=== PATIENT | male | born 1955 | race Caucasian/White ===

== ENCOUNTER → 2016-09-30 | Outpatient (CLI) | payer BC, OTHER | LOC: FIMAGING 13:01 | PROVIDERS: ATTEND Orthopaedic Surgery | DX: M17.12 Unilateral primary osteoarthritis, left knee (principal); M25.462 Effusion, left knee ==

== ENCOUNTER → 2016-10-15 | Outpatient (CLI) | payer BC, OTHER | LOC: FIMAGING 08:39 | PROVIDERS: ATTEND Orthopaedic Surgery | DX: Z01.818 Encounter for other preprocedural examination (principal); M17.12 Unilateral primary osteoarthritis, left knee ==

== ENCOUNTER 2016-10-16 06:46 | Inpatient (IN) | payer BC ==
[2016-10-16] MEDS ORDERED: TRANEXAMIC ACID 3,000 MG in NS 50 ML IRR ONE (07:01)
[2016-10-16] MEDS ORDERED: ACETAMINOPHEN 325 MG TAB PO ONE (07:01)
[2016-10-16] MEDS ORDERED: ROPIVACAINE 0.2% 80 MG, EPINEPHrine 0.2 MG, KETOROLAC TROMETHAMINE 30 MG in BAG 0 ML IU ONE (07:01)
[2016-10-16] MEDS ORDERED: ceFAZolin 2 GM/DEXTROSE 100 ML IV ONE (07:01)
[2016-10-16] MEDS ORDERED: DEXAMETHASONE 4 MG/ML VIAL IVP ONE (07:01)
[2016-10-16] MEDS ORDERED: FAMOTIDINE 20 MG TAB PO ONE (07:01)
--- NOTE | 2016-10-16 07:08 | PDHPUP ---
History & Physical Update H&P update statement: This history and physical update is based on an assessment of the patient which was completed after admission or registration (within 24 hours), but prior to the surgery/procedure. H&P update: H&P reviewed & patient examined, no change in patient's condition since H&P completed
[2016-10-16] MEDS ORDERED: LR 1,000 ML IV ONE (07:10)
[2016-10-16] MEDS ORDERED: TRANEXAMIC ACID 3,000 MG/50 ML BAG IRR ONE (07:33)
[2016-10-16] MEDS ORDERED: VANCOMYCIN 1 GM VIAL ONE (07:33)
[2016-10-16] MEDS ORDERED: MIDAZOLAM 2 MG/2 ML VIAL IVP ONE (09:12)
--- NOTE | 2016-10-16 09:14 | PDANEPAE ---
ANE History of Present Illness tka ANE Past Medical History - Cardiovascular History Hx Hypertension: Yes Hx Arrhythmias: No Hx Chest Pain: No Hx Coronary Artery / Peripheral Vascular Disease: No Hx CHF / Valvular Disease: No Hx Palpitations: No - Pulmonary History Hx COPD: No Hx Asthma/Reactive Airway Disease: No Hx Recent Upper Respiratory Infection: No Hx Oxygen in Use at Home: No Hx Sleep Apnea: No Sleep Apnea Screening Result - Last Documented: Positive - Neurologic History Hx Cerebrovascular Accident: No Hx Seizures: No Hx Dementia: No - Endocrine History Hx Diabetes: No - Renal History Hx Renal Disorders: No - Liver History Hx Hepatic Disorders: No - Neurological & Psychiatric Hx Hx Neurological and Psychiatric Disorders: No - Cancer History Hx Cancer: Yes Cancer History Comment: skin ca on nose, face, arm. -melanoma and basil/ squamous cell - Congenital Disorder History Hx Congenital Disorders: No - GI History Hx Gastrointestinal Disorders: No - Chronic Pain History Chronic Pain: No - Surgical History Prior Surgeries: C5-6 fusion 2009. left knee scope 2003. left knee 1983 ANE Review of Systems - Exercise capacity METS (RN): 3 METS ANE Patient History - Allergies Allergies/Adverse Reactions: No Known Allergies Allergy (Unverified 09/13/16 14:15) - Home Medications Home Medications: Doxazosin Mesylate [Cardura 4 MG (*)] 4 mg PO HS 09/13/16 [Last Taken 10/15/16 20:00] Hydrochlorothiazide [HCTZ (*)] 25 mg PO DAILY 09/13/16 [Last Taken 10/15/16 09: 00] Ketoconazole 2% [Nizoral 2% Cream (*)] 1 radha TP DAILY 09/13/16 [Last Taken 2 Weeks Ago] Losartan Potassium 100 mg PO DAILY 09/13/16 [Last Taken 10/15/16 09:00] Omeprazole [Prilosec 20 mg] 40 mg PO DAILY 09/13/16 [Last Taken 3 Weeks Ago] guaiFENesin [Mucinex 600 MG (*)] 1,200 mg PO DAILY PRN 09/13/16 [Last Taken 2 Weeks Ago] - NPO status NPO Status: no food or drink >8 hours NPO Since - Liquids (Date): 10/15/16 NPO Since - Liquids (Time): 20:00 NPO Since - Solids (Date): 10/15/16 NPO Since - Solids (Time): 20:00 - Anes Hx Anes Hx: no prior problems - Smoking Hx Smoking Status: Never smoked - Family Anes Hx Family Hx Anesthesia Complications: no ANE Labs/Vital Signs - Vital Signs Blood Pressure: 134/88 Heart Rate: 80 Respiratory Rate: 16 O2 Sat (%): 95 Height: 175.26 cm Weight: 113.398 kg ANE Physical Exam - Airway Mallampati Score: Class 2 Mouth exam: normal dental/mouth exam - Pulmonary Pulmonary: no respiratory distress - Cardiovascular Cardiovascular: regular rate and rhythym - ASA Status ASA Status: II ANE Anesthesia Plan Anesthesia Plan: spinal Regional Anesthesia: adductor canal FNB
[2016-10-16] MEDS ORDERED: MIDAZOLAM 2 MG/2 ML VIAL ONE (09:16)
[2016-10-16] MEDS ORDERED: LIDOCAINE 2% 5 ML SDV ONE (09:21)
[2016-10-16] MEDS ORDERED: PROPOFOL/EMULSION 500 MG/50 ML BOTTLE IV ONE ×2 (09:22→10:16)
[2016-10-16] MEDS ORDERED: HYDROmorphONE/DILAUDID 1 MG/ML SYR IVP PRN (09:42)
[2016-10-16] MEDS ORDERED: ONDANSETRON 4 MG/2 ML VIAL IVP PRN ×2 (09:42→11:02)
[2016-10-16] MEDS ORDERED: D5W LR 500 ML IV PRN (09:42)
[2016-10-16] MEDS ORDERED: fentaNYL 100 MCG/2 ML INJ IVP PRN (09:42)
[2016-10-16] MEDS ORDERED: MEPERIDINE 25 MG/ML SYR IVP PRN (09:42)
[2016-10-16] MEDS ORDERED: NALOXONE HCL 0.4 MG/ML INJ IVP PRN (09:42)
[2016-10-16] MEDS ORDERED: ROPIVACAINE HCL 150 MG/30 ML INJ ONE (10:17)
[2016-10-16] MEDS ORDERED: guaiFENesin 600 MG TAB.ER PO PRN (11:01)
--- NOTE | 2016-10-16 11:01 | POSTOPPROG ---
Post Op Note Date of Operation: 10/16/16 Surgeon: Mercy Reid Automotive Porter: helga luna Anesthesiologist: alf Anesthesia: IV Sedation, Local (Specify) (adductor canal block), Spinal Pre-op Diagnosis: L knee OA Post-op Diagnosis: L knee OA Indication: failed conservative therapies Procedure: L TKA, robot assisted Inf/Abcess present in the surg proc area at time of surgery?: No EBL: 50-100
[2016-10-16] MEDS ORDERED: diphenhydrAMINE 25 MG CAP PO PRN (11:02)
[2016-10-16] MEDS ORDERED: METOCLOPRAMIDE 10 MG/2 ML VIAL IVP PRN (11:02)
[2016-10-16] MEDS ORDERED: CYCLOBENZAPRINE 10 MG TAB PO PRN (11:02)
[2016-10-16] MEDS ORDERED: PROMETHAZINE HCL 25 MG SUPPR PR PRN (11:02)
[2016-10-16] MEDS ORDERED: POLYETHYLENE GLYCOL 3350 17 GM PKT PO PRN (11:02)
[2016-10-16] MEDS ORDERED: DIPHENOXYLATE/ATROPINE LOMOTIL 1 TAB PO PRN (11:02)
[2016-10-16] MEDS ORDERED: BISACODYL 10 MG SUPP PR PRN (11:02)
[2016-10-16] MEDS ORDERED: TEMAZEPAM 15 MG CAP PO PRN (11:02)
[2016-10-16] MEDS ORDERED: MAGNESIUM HYDROXIDE 30 ML UDCUP PO PRN (11:02)
[2016-10-16] MEDS ORDERED: LACTULOSE 20 GM/30 ML UDCUP PO PRN (11:02)
[2016-10-16] MEDS ORDERED: ONDANSETRON DISINTEGRATING 4 MG TAB PO PRN (11:02)
[2016-10-16] MEDS ORDERED: PROMETHAZINE HCL 25 MG/ML INJ IVP PRN (11:02)
--- NOTE | 2016-10-16 11:19 | POSTANESTH ---
Post Anesthetic Evaluation Cardiovascular Status: Normal, Stable Respiratory Status: Normal, Stable Level of Consciousness/Mental Status: Can Participate in Eval, Moderately Sleepy Pain Control: Adequate, Prn Tx Ordered Nausea/Vomiting Control: Adequate, Prn Tx Ordered Complications Possibly Related to Anesthesia: None Noted
[2016-10-16] MEDS ORDERED: LR 1,000 ML IV SCH (11:30)
[2016-10-16] MEDS: ACETAMINOPHEN 325 MG TAB PO SCH ×2 (12:52→17:58)
[2016-10-16] MEDS: ceFAZolin 2 GM/DEXTROSE 100 ML IV SCH (17:00)
[2016-10-16] MEDS: oxyCODONE IR 5 MG TAB PO PRN (17:11)
[2016-10-16] MEDS: FAMOTIDINE 20 MG TAB PO SCH (20:34)
[2016-10-16] MEDS: ASPIRIN 325 MG TAB PO SCH (20:35)
[2016-10-16] MEDS: SENNOSIDES/DOCUSATE SODIUM TAB PO SCH (20:35)
[2016-10-16] MEDS ORDERED: DOXAZOSIN MESYLATE 4 MG TAB PO SCH (21:00)
[2016-10-17] MEDS: ACETAMINOPHEN 325 MG TAB PO SCH ×3 (00:07→12:02)
[2016-10-17] MEDS: ceFAZolin 2 GM/DEXTROSE 100 ML IV SCH (00:07)
[2016-10-17 05:18] LABS: HEMATOCRIT 39.1 % (40.0-51.0); HEMOGLOBIN 13.7 g/dL (13.7-17.5)
[2016-10-17 07:56] VITALS: BP 145/88; PULSE 80; RESP 14; TEMP 97.8; O2SAT 97
--- NOTE | 2016-10-17 08:08 | SOAPPROG ---
SOAP Progress Note Assessment/Plan: Assessment: Patient is doing well POD 1 s/p L TKA, leena Pain management: pain is well controlled on oral pain meds. VTE ppx: recommend aspirin daily for 3 weeks, cont KESHAV and SCDs Anemia: level is expected initially postop. Asymptomatic. Continue to monitor D/c planning: d/c to home today pending release from PT Plan: 10/17/16 08:08 Objective: Vital Signs Temp Pulse Resp BP Pulse Ox 36.6 C 80 14 145/88 H 97 10/17/16 07:53 10/17/16 07:53 10/17/16 07:53 10/17/16 07:53 10/17/16 07:53 Laboratory Results 10/17/16 04:25 10/16/16 10/17/16 10/18/16 05:59 05:59 05:59 Intake Total 5740 Output Total 2895 Balance 2845 ICD10 Worksheet Patient Problems: Problems Problem Status Onset Osteoarthritis of knee, unilateral Acute - ICD10 Problem Qualifiers (1) Osteoarthritis of knee, unilateral
[2016-10-17] MEDS: ASPIRIN 325 MG TAB PO SCH (08:25)
[2016-10-17] MEDS: SENNOSIDES/DOCUSATE SODIUM TAB PO SCH (08:26)
[2016-10-17] MEDS: oxyCODONE IR 5 MG TAB PO PRN (08:26)
[2016-10-17] MEDS: FAMOTIDINE 20 MG TAB PO SCH (08:28)
[2016-10-17] MEDS ORDERED: LOSARTAN POTASSIUM 50 MG TAB PO SCH (09:00)
[2016-10-17] MEDS ORDERED: KETOCONAZOLE 2% 15 GM CREAM TP SCH (09:00)
[2016-10-17] MEDS ORDERED: HYDROCHLOROTHIAZIDE 25 MG TAB PO SCH (09:00)
[2016-10-17] MEDS ORDERED: NON-FORMULARY NEW DRUG (Omeprazole [Prilosec 20 Mg] 40 MG) PO SCH (09:00)
[2016-10-17] MEDS ORDERED: NON-FORMULARY NEW DRUG (Losartan Potassium [Losartan Potassium] 100 MG) PO SCH (09:00)
[2016-10-17] MEDS ORDERED: PANTOPRAZOLE SODIUM 40 MG TAB PO SCH (09:00)
--- NOTE | 2016-10-17 14:01 | GOP ---
[f rep st] OPERATIVE REPORT DATE OF OPERATION: 10/16/2016 SURGEON: Erica Reid MD BUSINESS TECHNOLOGY ANALYST: FREDI Luther. ANESTHESIA: Spinal. PREOPERATIVE DIAGNOSIS: Left knee osteoarthritis. POSTOPERATIVE DIAGNOSIS: Left knee osteoarthritis. PROCEDURE PERFORMED: Left total knee arthroplasty with computer navigation and robotic assist. FINDINGS: ESTIMATED BLOOD LOSS: 30 cc. DESCRIPTION OF PROCEDURE: PATHOLOGY: Severe tricompartmental osteoarthritis. INDICATIONS: This is a 61-year-old male with severe and progressive pain and deformity of the left knee unresponsive to conservative care. Risks and benefits of the surgical intervention were explained in detail. DESCRIPTION OF PROCEDURE: The patient was brought to the operative room and placed on the table in the supine position. Spinal anesthesia was induced without difficulty. A pneumatic tourniquet was applied about the left proximal thigh, and the leg was prepped and draped in a sterile fashion. The leg wooten was applied. After exsanguination by elevation the tourniquet was inflated to 275 mm of mercury. Incision was made anterior medial from the tibial tuberosity to a point 2 cm proximal to the superior pole of the patella. Medial parapatellar arthrotomy was carried out from the superior pole of the patella and posteriorly in line with the fibers of the Type II VMO. The medial collateral ligament was elevated and the infrapatellar fat pad was resected. The patella was everted and the articular surface was excised. A 38 mm patellar button was placed. Attention was turned first to the distal aspect of the left femur. At 3 cm proximal to the medial rise of the femur, 2 percutaneous half pins were placed for fixation of the femoral array. In a similar fashion, 2 pins were placed anteromedial on the tibia for fixation of the tibial array. External land marking and registration of the hip center was performed without difficulty. Internal femoral and tibial registration was carried out without difficulty and the femoral and tibial checkpoints were placed and verified for accuracy. Attention was turned to the femur. The foot print for the size 6 femoral component was cut with the saw using the [employer] robotic system and verified for accuracy against the CT based plan. In a similar fashion, saw was used to cut the footprint for the size 7 tibial component using the [employer] system and verified for accuracy against the CT based plan. The tibial articular surface was excised without difficulty, followed by the intercondylar box cut. The knee was extended and the remnants of the medial and lateral meniscus were excised. The posterior capsule was injected with ropivacaine, epinephrine and Toradol. A size 7 MIS mini-keel tibial tray was positioned. Trial reduction was then carried out. There was excellent range of motion, alignment, and stability using the 9 mm polyethylene. All trials were then removed. The joint was thoroughly irrigated and carefully dried. Two packages of cement and 2 grams of vancomycin were mixed in the vacuum mixer and placed on the fixation surfaces of all surfaces of the components. The components were implanted and all excess cement was thoroughly removed. The permanent 9 mm polyethylene was placed without difficulty. The tourniquet was deflated and all bleeders were coagulated. The wound was thoroughly irrigated and closed using interrupted sutures of 2-0 Vicryl for the joint capsule. The subcu was closed with 3-0 Vicryl and the skin with 4-0 Monocryl. Dermabond and Steri-Strips were applied followed by a compressive dressing. The patient was then moved from the operating room to the recovery room in good condition, having tolerated the procedure well. /[id number]/MODL MTDD
--- NOTE | 2016-10-20 22:02 | GDS ---
[f rep st] DISCHARGE SUMMARY ADMIT DIAGNOSIS: Left knee osteoarthritis. DISCHARGE DIAGNOSIS: Left knee osteoarthritis. PROCEDURE: Left total knee arthroplasty, robotic assisted. VTE prophylaxis. Full-strength aspirin x21 days. BRIEF DESCRIPTION OF HOSPITAL STAY: Patient was admitted for an elective joint arthroplasty. The patient tolerated the procedure well and has passed physical therapy. The patient was given appropriate antibiotic prophylaxis and venous thromboembolism prophylaxis. The patient's pain was well controlled on oral pain medication. The patient was holding down food and had urinated. Decision was made to discharge the patient. The patient was given post-operative prescriptions pre-operatively. PLAN: To follow up with Dr. Reid at [facility] as scheduled , on November 07. /[id number]/MODL MTDD
== END 2016-10-17 12:45 | disposition home or self-care (01) | DRG 470 ==
LOC: F3N 06:46
PROVIDERS: ADMIT Orthopaedic Surgery; ATTEND Orthopaedic Surgery
DX: M17.12 Unilateral primary osteoarthritis, left knee (principal); I10 Essential (primary) hypertension; Z85.820 Personal history of malignant melanoma of skin; Z98.1 Arthrodesis status
CPT/HCPCS: 97116-GP; 97161-GP; 97165-GO; C1713; J0171; J0690; J1100; J1885; J2250; J2704; J2795; J3370

== ENCOUNTER → 2016-11-19 | Outpatient (CLI) | payer BC | LOC: FIMAGING 13:51 | PROVIDERS: ATTEND Orthopaedic Surgery | DX: Z01.818 Encounter for other preprocedural examination (principal); M17.11 Unilateral primary osteoarthritis, right knee ==

== ENCOUNTER 2016-12-04 05:38 | Inpatient (IN) | payer BC ==
[2016-11-19 14:51] LABS: % IMMATURE GRANULYOCYTES 0.4 % (0.0-1.1); ABSOLUTE IMMATURE GRANULOCYTES 0.03 10^3/uL (0.00-0.10); ADD DIFF? NO; ADD MORPH? NO; ADD SCAN? NO; ATYPICAL LYMPHOCYTE FLAG 10 (0-99); FRAGMENT RBC FLAG 0 (0-99); HEMATOCRIT 43.9 % (40.0-51.0); HEMOGLOBIN 15.2 g/dL (13.7-17.5); LEFT SHIFT FLG 0 (0-99); LIPEMIA HEMOLYSIS FLAG 90 (0-99); MEAN CELL HEMOGLOBIN 32.9 pg (27.9-34.1); MEAN CELL HEMOGLOBIN CONCENTR. 34.6 g/dL (32.4-36.7); MEAN PLATELET VOLUME 10.3 fL (8.7-11.7); PLATELET CLUMPS FLAG 0 (0-99); PLATELET COUNT 211 10^3/uL (150-400); RED BLOOD CELL COUNT 4.62 10^6/uL (4.40-6.38); RED CELL DISTRIBUTION WIDTH 12.8 % (11.5-15.2)
[2016-11-19 15:26] LABS: ALANINE AMINOTRANSFERASE 47 IU/L (21-72); ALBUMIN 3.9 g/dL (3.5-5.0); ALKALINE PHOSPHATASE 83 IU/L (38-126); ANION GAP 9 mEq/L (8-16); ASPARTATE AMINOTRANSFERASE 31 IU/L (17-59); BILIRUBIN,TOTAL 0.7 mg/dL (0.1-1.4); CALCIUM 9.7 mg/dL (8.5-10.4); CARBON DIOXIDE 25 mEq/l (22-31); CHLORIDE 102 mEq/L (97-110); CREATININE 1.1 mg/dL (0.7-1.3); GLOMERULAR FILTRATION RATE > 60; GLUCOSE 97 mg/dL (70-100); POTASSIUM 3.8 mEq/L (3.5-5.2); SODIUM 136 mEq/L (134-144); TOTAL PROTEIN 7.2 g/dL (6.3-8.2)
[2016-12-04] MEDS ORDERED: TRANEXAMIC ACID 3,000 MG in NS 50 ML IRR ONE ×2 (06:00→06:02)
[2016-12-04] MEDS ORDERED: ROPIVACAINE 0.2% 80 MG, EPINEPHrine 0.2 MG, KETOROLAC TROMETHAMINE 30 MG in BAG 0 ML IU ONE ×2 (06:00→06:02)
[2016-12-04] MEDS ORDERED: FAMOTIDINE 20 MG TAB PO ONE ×2 (06:02)
[2016-12-04] MEDS ORDERED: ceFAZolin 2 GM/DEXTROSE 100 ML IV ONE ×2 (06:02)
[2016-12-04] MEDS ORDERED: ACETAMINOPHEN 325 MG TAB PO ONE ×2 (06:02)
[2016-12-04] MEDS ORDERED: DEXAMETHASONE 4 MG/ML VIAL IVP ONE ×2 (06:02)
[2016-12-04] MEDS ORDERED: LIDOCAINE 1% 2 ML INJ ID PRN (06:04)
[2016-12-04] MEDS ORDERED: LR 1,000 ML IV ONE (06:04)
[2016-12-04] MEDS ORDERED: VANCOMYCIN 1 GM VIAL ONE (06:45)
[2016-12-04] MEDS ORDERED: TRANEXAMIC ACID 3,000 MG/50 ML BAG IRR ONE (06:45)
[2016-12-04] MEDS ORDERED: PROPOFOL/EMULSION 500 MG/50 ML BOTTLE IV ONE ×2 (07:00)
[2016-12-04] MEDS ORDERED: fentaNYL 100 MCG/2 ML INJ ONE (07:00)
--- NOTE | 2016-12-04 07:05 | PDANEPAE ---
ANE History of Present Illness 61 yo male with OA s/p L TKA in August now for R TKA ANE Past Medical History - Cardiovascular History Hx Hypertension: Yes Hx Arrhythmias: No Hx Chest Pain: No Hx Coronary Artery / Peripheral Vascular Disease: No Hx CHF / Valvular Disease: No Hx Palpitations: No - Pulmonary History Hx COPD: No Hx Asthma/Reactive Airway Disease: No Hx Recent Upper Respiratory Infection: No Hx Oxygen in Use at Home: No Hx Sleep Apnea: No Sleep Apnea Screening Result - Last Documented: Positive - Neurologic History Hx Cerebrovascular Accident: No Hx Seizures: No Hx Dementia: No - Endocrine History Hx Diabetes: No - Renal History Hx Renal Disorders: No Renal History Comment: BPH - Liver History Hx Hepatic Disorders: No - Neurological & Psychiatric Hx Hx Neurological and Psychiatric Disorders: No - Cancer History Hx Cancer: Yes Cancer History Comment: skin ca on nose, face, arm. -melanoma and basil/ squamous cell - Congenital Disorder History Hx Congenital Disorders: No - GI History GERD: moderate Hx Gastrointestinal Disorders: Yes Gastrointestinal History Comment: ACID REFLUX - Other Health History Other Health History: " I'm allergic to [place]-trees,mold, grass,cats" - Chronic Pain History Chronic Pain: No - Surgical History Prior Surgeries: L total knee Sep 2016. C5-6 fusion 2009. left knee scope 2003. left knee 1983 ANE Review of Systems Review of Systems: No URI/fever x2 weeks. - Exercise capacity METS (RN): 3 METS - Systems Cardiac: Reports: no symptoms Respiratory: Reports: no symptoms ANE Patient History - Allergies Allergies/Adverse Reactions: cat dander Allergy (Verified 11/05/16 13:39) mold Allergy (Verified 11/05/16 13:39) tree and shrub pollen Allergy (Verified 11/05/16 13:39) - Home Medications Home medications: home medication list seen and reviewed Home Medications: Doxazosin Mesylate [Cardura 4 MG (*)] 4 mg PO HS 09/13/16 [Last Taken 12/03/16 19:00] Hydrochlorothiazide [HCTZ (*)] 25 mg PO DAILY 09/13/16 [Last Taken 12/03/16 10: 00] Losartan Potassium 100 mg PO DAILY 09/13/16 [Last Taken 12/03/16 10:00] Sennosides/Docusate Sodium [Senokot-S] 1 - 2 tab PO BID 11/04/16 [Last Taken 3 Weeks Ago ~11/13/16] - NPO status NPO Status: no food or drink >8 hours NPO Since - Liquids (Date): 12/03/16 NPO Since - Liquids (Time): 18:00 NPO Since - Solids (Date): 12/03/16 NPO Since - Solids (Time): 18:00 - Anes Hx Anes Hx: no prior problems - Smoking Hx Smoking Status: Never smoked - Family Anes Hx Family Anes Hx: neg - N/A Family Hx Anesthesia Complications: no ANE Labs/Vital Signs - Labs Result Diagrams: 11/19/16 14:45 11/19/16 14:45 - Vital Signs Vital Signs: reviewed preoperatively; see RN documention for details Blood Pressure: 129/90 Heart Rate: 78 Respiratory Rate: 20 O2 Sat (%): 94 Height: 175.26 cm Weight: 113.398 kg ANE Physical Exam - Airway Neck exam: FROM Mallampati Score: Class 2 Mouth exam: poor dentition - Pulmonary Pulmonary: clear to auscultation - Cardiovascular Cardiovascular: regular rate and rhythym ANE Anesthesia Plan Anesthesia Plan: spinal Regional Anesthesia: adductor canal FNB
[2016-12-04] MEDS ORDERED: DEXAMETHASONE 4 MG/ML VIAL ONE ×2 (07:10)
[2016-12-04] MEDS ORDERED: METOCLOPRAMIDE 10 MG/2 ML VIAL IVP PRN (07:30)
[2016-12-04] MEDS ORDERED: MAGNESIUM HYDROXIDE 30 ML UDCUP PO PRN (07:30)
[2016-12-04] MEDS ORDERED: DIPHENOXYLATE/ATROPINE LOMOTIL 1 TAB PO PRN (07:30)
[2016-12-04] MEDS ORDERED: POLYETHYLENE GLYCOL 3350 17 GM PKT PO PRN (07:30)
[2016-12-04] MEDS ORDERED: PROMETHAZINE HCL 25 MG SUPPR PR PRN (07:30)
[2016-12-04] MEDS ORDERED: ONDANSETRON DISINTEGRATING 4 MG TAB PO PRN (07:30)
[2016-12-04] MEDS ORDERED: LACTULOSE 20 GM/30 ML UDCUP PO PRN (07:30)
[2016-12-04] MEDS ORDERED: diphenhydrAMINE 25 MG CAP PO PRN (07:30)
[2016-12-04] MEDS ORDERED: CYCLOBENZAPRINE 10 MG TAB PO PRN (07:30)
[2016-12-04] MEDS ORDERED: ONDANSETRON 4 MG/2 ML VIAL IVP PRN ×2 (07:30→08:33)
[2016-12-04] MEDS ORDERED: LR 1,000 ML IV SCH (07:30)
[2016-12-04] MEDS ORDERED: BISACODYL 10 MG SUPP PR PRN (07:30)
[2016-12-04] MEDS ORDERED: PROMETHAZINE HCL 25 MG/ML INJ IVP PRN (07:30)
[2016-12-04] MEDS ORDERED: TEMAZEPAM 15 MG CAP PO PRN (07:30)
[2016-12-04] MEDS ORDERED: BUPIVACAINE 0.5% 30 ML SDV ONE (08:09)
[2016-12-04] MEDS ORDERED: NALOXONE HCL 0.4 MG/ML INJ IVP PRN (08:33)
[2016-12-04] MEDS ORDERED: ALBUTEROL 3 ML DEYVIAL IH PRN (08:33)
[2016-12-04] MEDS ORDERED: fentaNYL 100 MCG/2 ML INJ IVP PRN (08:33)
[2016-12-04] MEDS ORDERED: OXYCODONE/APAP 5/325 TAB PO PRN (08:33)
[2016-12-04] MEDS ORDERED: LR 500 ML IV PRN (08:33)
--- NOTE | 2016-12-04 08:55 | POSTOPPROG ---
Post Op Note Date of Operation: 12/04/16 Surgeon: Mercy Quan Vending Machine Operator: paul quan Anesthesiologist: dr. fish Anesthesia: Spinal, Other (Specify) (adductor canal block) Pre-op Diagnosis: right knee OA Post-op Diagnosis: same Indication: right knee pain due to OA that failed conservative measures Procedure: R TKA robot assisted Findings: severe knee OA Inf/Abcess present in the surg proc area at time of surgery?: No EBL: 50-100
--- NOTE | 2016-12-04 09:28 | POSTANESTH ---
Post Anesthetic Evaluation Cardiovascular Status: Normal, Stable Respiratory Status: Normal, Stable Level of Consciousness/Mental Status: Can Participate in Eval, Mildly Sleepy, Arousable Pain Control: Adequate, Prn Tx Ordered Nausea/Vomiting Control: Adequate, Prn Tx Ordered Complications Possibly Related to Anesthesia: None Noted
[2016-12-04] MEDS: oxyCODONE IR 5 MG TAB PO PRN ×4 (11:35→21:53)
[2016-12-04] MEDS: LOSARTAN POTASSIUM 50 MG TAB PO SCH (12:15)
[2016-12-04] MEDS: SENNOSIDES/DOCUSATE SODIUM TAB PO SCH ×2 (12:18→21:53)
[2016-12-04] MEDS: ACETAMINOPHEN 325 MG TAB PO SCH ×3 (12:18→23:59)
[2016-12-04] MEDS: ceFAZolin 2 GM/DEXTROSE 100 ML IV SCH ×2 (14:17→21:55)
[2016-12-04] MEDS ORDERED: DOXAZOSIN MESYLATE 4 MG TAB PO SCH (21:00)
[2016-12-04] MEDS: ASPIRIN 325 MG TAB PO SCH (21:52)
[2016-12-04] MEDS: FAMOTIDINE 20 MG TAB PO SCH (21:53)
[2016-12-05] MEDS: oxyCODONE IR 5 MG TAB PO PRN ×3 (02:00→09:31)
[2016-12-05 04:27] VITALS: BP 129/72; RESP 16
[2016-12-05 05:48] LABS: HEMATOCRIT 37.2 % (40.0-51.0); HEMOGLOBIN 13.2 g/dL (13.7-17.5)
[2016-12-05] MEDS: ACETAMINOPHEN 325 MG TAB PO SCH (05:48)
[2016-12-05] MEDS: SENNOSIDES/DOCUSATE SODIUM TAB PO SCH (08:15)
[2016-12-05] MEDS: LOSARTAN POTASSIUM 50 MG TAB PO SCH (08:17)
[2016-12-05] MEDS: ASPIRIN 325 MG TAB PO SCH (08:18)
[2016-12-05] MEDS: FAMOTIDINE 20 MG TAB PO SCH (08:19)
[2016-12-05] MEDS ORDERED: HYDROCHLOROTHIAZIDE 25 MG TAB PO SCH (09:00)
[2016-12-05] MEDS ORDERED: NON-FORMULARY NEW DRUG (Losartan Potassium [Losartan Potassium] 100 MG) PO SCH (09:00)
[2016-12-05 09:32] VITALS: PULSE 87; TEMP 97; O2SAT 91
--- NOTE | 2016-12-05 10:35 | SOAPPROG ---
SOAP Progress Note Assessment/Plan: Assessment: Jos is doing well POD 1 s/p R TKA 1) pain management: pain is well controlled on oral pain meds. 2) Anemia: level expected initially postop. asymptomatic. cont to monitor 3) VTE ppx: recommend ASA 325 mg once daily. cont KESHAV hose and SCDs 4)D/c planning: d/c to home pending release from PT Plan: 12/05/16 10:34 Subjective: Jos is doing well today, denies SOB, chest pain and N/V. Objective: Vital Signs Temp Pulse Resp BP Pulse Ox 36.1 C 87 16 129/72 H 91 L 12/05/16 08:00 12/05/16 08:00 12/05/16 08:00 12/05/16 08:17 12/05/16 08:00 Laboratory Results 12/05/16 05:37 11/19/16 14:45 12/04/16 12/05/16 12/06/16 05:59 05:59 05:59 Intake Total 2850 Output Total 2019 Balance 830 RLE: incision dressing is clean and dry, NVI, +pf/df ICD10 Worksheet Patient Problems: Problems Problem Status Onset Osteoarthritis of knee, unilateral Acute Primary localized osteoarthritis of right knee Acute
--- NOTE | 2016-12-05 10:35 | ASDISCHSUM ---
Discharge Information Plan Status:Home with No Needs Medically Cleared to Leave: Discharge Date:12/05/2016 10:33 AM CM D/C Disposition:Home, Routine, Self-Care ADT D/C Disposition:Home, Routine, Self-Care Projected Discharge Date:12/05/2016 10:33 AM Transportation at D/C: Discharge Delay Reason: Follow-Up Date:12/05/2016 10:33 AM Discharge Slot: Final Diagnosis: Placement Information Patient Contact Information Contact Name:SOWMYA Relationship: Address:[address] City:[facility] Phone: [facility]/Zip Code:[place] [address] Email: Financial Information Financial Class:HMO and PPO Plans Primary Plan Desc: OUT OF STATE PPO Primary Plan Number:[id number] Secondary Plan Desc: Secondary Plan Number: Assessment Information Intervention Information
--- NOTE | 2016-12-05 11:46 | GDS ---
[f rep st] DISCHARGE SUMMARY ADMISSION DIAGNOSIS: Right knee osteoarthritis. DISCHARGE DIAGNOSIS: Right knee osteoarthritis. PROCEDURE: Right total knee arthroplasty, robot assisted. VTE PROPHYLAXIS: Aspirin recommended for 3 weeks daily. BRIEF DESCRIPTION OF HOSPITAL STAY: Patient was admitted for an elective joint arthroplasty. The pa tient tolerated the procedure well and has passed physical therapy. The patient was given appropriat e antibiotic prophylaxis and venous thromboembolism prophylaxis. The patient's pain was well control led on oral pain medication, patient was holding down food, and had urinated. Decision was made to d ischarge the patient. The patient was given post-operative prescriptions pre-operatively. PLAN: Please follow up as scheduled with Dr. Redi's office on December 26 at 10:15 a.m. /[id number]/MODL
--- NOTE | 2016-12-06 12:32 | GOP ---
[f rep st] OPERATIVE REPORT DATE OF OPERATION: 12/04/2016 SURGEON: Erica Reid MD WATER CHEMIST: Libra Reid PA-C ANESTHESIA: Spinal. PREOPERATIVE DIAGNOSIS: Right knee osteoarthritis. POSTOPERATIVE DIAGNOSIS: Right knee osteoarthritis. PROCEDURE PERFORMED: Right total knee arthroplasty with computer navigation and robotic assist. FINDINGS/PATHOLOGY: Severe medial and patellofemoral osteoarthritis. ESTIMATED BLOOD LOSS: 30 cc. INDICATIONS: This is a 61-year-old gentleman with severe and progressive pain and deformity of the right knee unresponsive to conservative care. Risks and benefits of the surgical intervention were explained in detail. DESCRIPTION OF PROCEDURE: The patient was brought to the operative room and placed on the table in the supine position. Spinal anesthesia was induced without difficulty. A pneumatic tourniquet was applied about the right proximal thigh, and the leg was prepped and draped in a sterile fashion. The leg wooten was applied. After exsanguination by elevation the tourniquet was inflated to 275 mm of mercury. Incision was made anterior medial from the tibial tuberosity to a point 2 cm proximal to the superior pole of the patella. Medial parapatellar arthrotomy was carried out from the superior pole of the patella and posteriorly in line with the fibers of the Type II VMO. The medial collateral ligament was elevated and the infrapatellar fat pad was resected. The patella was everted and the articular surface was excised. A 38 mm patellar button was placed. Attention was turned first to the distal aspect of the right femur. At 3 cm proximal to the medial rise of the femur, 2 percutaneous half pins were placed for fixation of the femoral array. In a similar fashion, 2 pins were placed anteromedial on the tibia for fixation of the tibial array. External land marking and registration of the hip center was performed without difficulty. Internal femoral and tibial registration was carried out without difficulty and the femoral and tibial checkpoints were placed and verified for accuracy. Attention was turned to the femur. The foot print for the size 6 femoral component was cut with the saw using the [email or web address] robotic system and verified for accuracy against the CT based plan. In a similar fashion, saw was used to cut the footprint for the size 6 tibial component using the [email or web address] system and verified for accuracy against the CT based plan. The tibial articular surface was excised without difficulty, followed by the intercondylar box cut. The knee was extended and the remnants of the medial and lateral meniscus were excised. The posterior capsule was injected with ropivacaine, epinephrine and Toradol. A size 6 MIS mini-keel tibial tray was positioned. Trial reduction was then carried out. There was excellent range of motion, alignment, and stability using the 9 mm polyethylene. All trials were then removed. The joint was thoroughly irrigated and carefully dried. Two packages of cement and 2 grams of vancomycin were mixed in the vacuum mixer and placed on the fixation surfaces of all surfaces of the components. The components were implanted and all excess cement was thoroughly removed. The permanent 9 mm polyethylene was placed without difficulty. The tourniquet was deflated and all bleeders were coagulated. The wound was thoroughly irrigated and closed using interrupted sutures of 2-0 Vicryl for the joint capsule. The subcu was closed with 3-0 Vicryl and the skin with 4-0 Monocryl. Dermabond and Steri-Strips were applied followed by a compressive dressing. The patient was then moved from the operating room to the recovery room in good condition, having tolerated the procedure well. /[id number]/MODL MTDD
== END 2016-12-05 10:33 | disposition home or self-care (01) | DRG 470 ==
LOC: F3N 05:38
PROVIDERS: ADMIT Orthopaedic Surgery; ATTEND Orthopaedic Surgery
PROC: 8E0YXBZ Computer Assisted Procedure of Lower Extremity (ICD-10-PCS; principal; 2016-12-04 07:15)
PROC: 0SRC0J9 Replacement of Right Knee Joint with Synthetic Substitute, Cemented, Open Approach (ICD-10-PCS; principal; 2016-12-04 07:15)
PROC: 8E0Y0CZ Robotic Assisted Procedure of Lower Extremity, Open Approach (ICD-10-PCS; principal; 2016-12-04 07:15)
DX: M17.11 Unilateral primary osteoarthritis, right knee (principal); I10 Essential (primary) hypertension; K21.9 Gastro-esophageal reflux disease without esophagitis; Z96.652 Presence of left artificial knee joint
CPT/HCPCS: 97116-GP; 97161-GP; 97165-GO; C1713; J0171; J0690; J1100; J1885; J2704; J2795; J3010; J3370